=== PATIENT | male | born 1980 | race Caucasian/White ===

== ENCOUNTER 2023-09-14 10:53 | Emergency (ER) | payer MEDICAID ==
[~2023-09-14] VITALS: Ht 180.3 cm; Wt 90.0 kg
[2023-09-14 10:58] VITALS: BP 108/60; PULSE 88; RESP 20; TEMP 98.4; O2SAT 99
[2023-09-14 11:53] LABS: BASOPHILS % 0.5 % (0.0-2.0); EOSINOPHILS % 1.1 % (0.0-5.0); HEMOGLOBIN. 17.2 g/dL (14.0-18.0); LYMPHOCYTES % 21.3 % (20.0-50.0); MEAN CORPUSCULAR HGB CONC 33.7 g/dL (31.0-37.0); MEAN CORPUSCULAR VOLUME 94.9 fL (80.0-94.0); MEAN PLATELET VOLUME 8.8 fl (7.4-10.4); MONOCYTES % 5.7 % (2.0-8.0); NEUTROPHILS % 71.4 % (40.0-76.0); PLATELET 202 x1000/uL (130-400); RED BLOOD CELL COUNT 5.37 mill/uL (4.7-6.1); RED CELL DISTRIBUTION WIDTH 14.2 % (11.6-14.6); WHITE BLOOD COUNT 8.2 x1000/uL (4.5-11.0)
[2023-09-14 12:06] LABS: ALANINE AMINOTRANSFERASE 34 IU/L (10-49); ALBUMIN 4.7 g/dL (3.2-4.8); ASPARTATE AMINOTRANSFERASE 27 IU/L (<34); BILIRUBIN TOTAL 0.5 mg/dL (0.1-1.0); CALCIUM 9.2 mg/dL (8.7-10.4); CARBON DIOXIDE 20 mEq/L (21-32); CHLORIDE 112 mEq/L (98-107); CREATININE 1.3 mg/dL (0.6-1.3); GLUCOSE 92 mg/dL (70-105); POTASSIUM 3.9 mEq/L (3.5-5.1); PROTEIN TOTAL 8.5 g/dL (6.0-8.3); SODIUM 143 mEq/L (136-145); UREA NITROGEN BLOOD 22 mg/dL (9-23)
[2023-09-14] MEDS ORDERED: FAMOTIDINE 20MG TABLET PO ONE (13:15)
[2023-09-14 13:37] LABS: CLARITY URINE CLEAR (CLEAR); COLOR URINE YELLOW (YELLOW); GLUCOSE URINE NEGATIVE (NEGATIVE); KETONES URINE NEGATIVE (NEGATIVE); LEUKOCYTE ESTERASE URINE NEGATIVE (NEGATIVE); NITRITE URINE NEGATIVE (NEGATIVE); OCCULT BLOOD URINE NEGATIVE (NEGATIVE); PH URINE 5.5 (4.5-8.0); PROTEIN URINE NEGATIVE (NEGATIVE); SPECIFIC GRAVITY URINE 1.008 (1.005-1.030); UROBILINOGEN URINE 0.2 E.U./dL (0.2-1.0)
[2023-09-14] MEDS ORDERED: VISCOUS LIDOCAINE 2% 15 ML UDC PO SCH (13:45)
== END 2023-09-14 14:44 | disposition home or self-care (01) ==
LOC: ER 11:56
DX: R09.A2 Foreign body sensation, throat (principal)
CPT/HCPCS: 80053; 81003; 85025; 36415; 70360; 71045; 99284; Z7610